=== PATIENT | female | born 1995 | race Caucasian/White ===

== ENCOUNTER 2018-09-05 04:08 | Emergency (ER) | payer MEDICARE ==
[2018-09-05] MEDS ORDERED: Acetaminophen TAB* 325 MG PO ONE (06:44)
--- NOTE | 2018-09-05 06:45 | ED ---
Lower Extremity - HPI Summary HPI Summary: Pt. is a 23 y.o female who presents to the ER with complaints of low back pain and bilateral LE edema x several days. Pt. notes she is from [place] and her and her So drove to [place] then to [place] this past week. Past hx of CP. Pt. denies fever, chills, urinary sxs, numbness, tingling or weakness, denies CP, SOB. Sxs are moderate in severity. No current modifying factors. - History of Current Complaint Chief Complaint: EDSoftTissueLowExtr Stated Complaint: SWOLLEN FEET AND BACK PER PT Time Seen by Provider: 09/05/18 06:12 Hx Obtained From: Patient Pain Intensity: 10 - Allergies/Home Medications Allergies/Adverse Reactions: Allergies Allergy/AdvReac Type Severity Reaction Status Date / Time aspirin Allergy Palpitation Verified 09/05/18 04:17 s cyanocobalamin (vitamin B12) Allergy Palpitation Verified 09/05/18 04:17 s Home Medications: Home Medications NK [No Home Medications Reported] 09/05/18 [History Confirmed 09/05/18] PMH/Surg Hx/FS Hx/Imm Hx Previously Healthy: Yes - Surgical History Surgical History: None Infectious Disease History: No Infectious Disease History: Denies: Traveled Outside the [place] in Last 30 Days - Family History Known Family History: Positive: Non-Contributory - Social History Occupation: Unemployed Lives: With Family Review of Systems Constitutional: Negative Negative: Fever, Chills Cardiovascular: Negative Negative: Palpitations, Chest Pain Respiratory: Negative Negative: Shortness Of Breath, Cough Gastrointestinal: Negative Negative: Abdominal Pain, Vomiting, Diarrhea Genitourinary: Negative Negative: dysuria, flank pain Positive: Other - low back pain. leg swelling. Skin: Negative Neurological: Negative Negative: Weakness, Paresthesia, Numbness All Other Systems Reviewed And Are Negative: Yes Physical Exam Triage Information Reviewed: Yes Vital Signs On Initial Exam: Initial Vitals Temp Pulse Resp BP Pulse Ox 98 F 98 18 125/89 97 09/05/18 04:11 09/05/18 04:11 09/05/18 04:11 09/05/18 04:11 09/05/18 04:11 Vital Signs Reviewed: Yes Appearance: Positive: Well-Appearing - Pt. lying in bed in NAD. Morbidly obese. SO present. Skin: Positive: Warm, Dry Head/Face: Positive: Normal Head/Face Inspection Eyes: Positive: Normal, EOMI Neck: Positive: Supple Respiratory/Lung Sounds: Positive: Clear to Auscultation, Breath Sounds Present Cardiovascular: Positive: Normal, RRR Musculoskeletal: Positive: Normal, Strength/ROM Intact, Other - Cannot appreciate leg edema secondary to pt.'s body habitus. no erythema. Good pulses. Neurological: Positive: Normal, CN Intact II-III Psychiatric: Positive: Affect/Mood Appropriate Diagnostics - Vital Signs Vital Signs Temp Pulse Resp BP Pulse Ox 09/05/18 04:11 98 F 98 18 125/89 97 - Laboratory Result Diagrams: 09/05/18 06:52 09/05/18 06:52 Lab Statement: Any lab studies that have been ordered have been reviewed, and results considered in the medical decision making process. Lower Extremity Course/Dx - Course Course Of Treatment: Pt. presenting with complaints of lower leg swelling and low back pain after numerous long car trips over the last few weeks. Difficult to evaluate pt. given body habitus. Given complaints and risk, bilateral u/s LEs ordered. CBC shows an H and H of 7.8 and 25. CMP unremarkable. U/A negative for infection. Discussed CBC with pt. and she states she has a hx of anemia and that is not uncommon for her. Pt. states she is suppose to be taking iron but has not been recently. Pt. denies CP, SOB, syncoped. U/S negative for DVTs, per radiology. Pt. given tylenol for pain. Results discussed. Will dc home. Pt. states they are going back home this weekend. Advised pt. to call PCP on Friday for a close f.u apt .and repeat labs. Will return to ER if sxs change or worsen. Pt. understands and agrees with plan. - Diagnoses Differential Diagnosis/HQI/PQRI: Positive: DVT, Sprain, Strain Provider Diagnoses: Leg edema, Low back pain Discharge - Sign-Out/Discharge Documenting (check all that apply): Patient Departure Patient Received Moderate/Deep Sedation with Procedure: No - Discharge Plan Condition: Good Disposition: HOME Patient Education Materials: Low Back Strain (ED), Leg Edema (ED), Anemia (ED) Referrals: Care [facility] [Outside] Additional Instructions: Schedule an appointment with your PCP within one week for repeat blood count Take your iron supplement as directed Elevate legs intermittently Tylenol or Motrin for pain as directed Apply warm compresses to back Return to ER if symptoms change or worsen - Billing Disposition and Condition Condition: GOOD Disposition: Home
[2018-09-05 07:04] LABS: ABS Eosinophils 0.2 10^3/ul (0-0.6); ABS Lymphocytes 2.8 10^3/ul (1.0-4.8); ABS Monocytes 0.6 10^3/ul (0-0.8); ABS Neutrophils 5.3 10^3/ul (1.5-7.7); Eosinophil % 1.8 %; Lymphocyte % 31.8 %; Mean Corpuscular HGB Conc 32 g/dL (31-36); Mean Corpuscular Hemoglobin 20 pg (27-31); Mean Platelet Volume 6.8 fL (7.4-10.4); Nucleated Red Blood Cells % 0.1; Platelet Count 349 10^3/uL (150-450); Red Cell Distribution Width 17 % (10-15)
[2018-09-05 07:11] LABS: Activated Partial Thrombo Time 37.3 seconds (26.0-38.0); INR 1.18 (0.82-1.09)
[2018-09-05 07:25] LABS: ALT 13 U/L (7-52); AST 11 U/L (13-39); Albumin 3.9 g/dL (3.2-5.2); Albumin/Globulin Ratio 1.3 (1-3); Alkaline Phosphatase 85 U/L (34-104); Anion Gap 4 mmol/L (2-11); BUN/Creatinine Ratio 15.7 (8-20); Blood Urea Nitrogen 11 mg/dL (6-24); CO2 Carbon Dioxide 30 mmol/L (22-32); Calcium 8.9 mg/dL (8.6-10.3); Chloride 105 mmol/L (101-111); EGFR African American 123.4 (>60); Globulin 3.1 g/dL (2-4); Glucose 94 mg/dL (70-100); Potassium 3.7 mmol/L (3.5-5.0); Sodium 139 mmol/L (135-145)
[2018-09-05 07:32] LABS: HCG Pregnancy < 0.60 mIU/mL
[2018-09-05 07:37] LABS: Microcytosis 3+
[2018-09-05 08:21] LABS: Hematocrit 25 % (35-47); Hemoglobin 7.8 g/dL (12.0-16.0); Mean Corpuscular Volume 64 fL (80-97); Red Blood Count 3.93 10^6 /uL (3.70-4.87)
[2018-09-05 08:55] LABS: Urine Appearance Cloudy; Urine Bacteria Absent (Absent); Urine Bilirubin Negative (Negative); Urine Blood 3+ (Negative); Urine Color Straw; Urine Glucose Negative (Negative); Urine Ketones Negative (Negative); Urine Nitrite Negative (Negative); Urine Protein Negative (Negative); Urine Red Blood Cell 1+(3-5/hpf) (Absent); Urine Specific Gravity 1.006 (1.010-1.030); Urine Squamous Epithelial Cell Present (Absent); Urine Urobilinogen Negative (Negative); Urine White Blood Cell Trace(0-5/hpf) (Absent)
[2018-09-05 09:25] VITALS: BP 118/61
== END 2018-09-05 09:24 | disposition home or self-care (01) ==
LOC: ED 04:08
DX: R60.0 Localized edema (principal); M54.5 Low back pain; Z88.6 Allergy status to analgesic agent; Z88.8 Allergy status to other drugs, medicaments and biological substances
CPT/HCPCS: 36415; 80053; 81003; 81015; 84702; 85025; 85060; 85610; 85730; 87086; 93970; 99282; A9270-GY